=== PATIENT | male | born 1990 | race Caucasian/White ===

== ENCOUNTER 2018-10-12 10:01 | Outpatient (CLI) | payer OTHER | END 2018-10-12 10:02 | disposition home or self-care (01) | LOC: DI 10:01 → EDSEX 10:15 | PROVIDERS: ATTEND Orthopaedic Surgery | DX: Z53.9 Procedure and treatment not carried out, unspecified reason (principal) ==

== ENCOUNTER 2018-12-07 08:02 | Outpatient (CLI) | payer OTHER ==
--- NOTE | 2018-12-07 12:17 | MRI Report ---
Reason: PAIN IN RIGHT SHOULDER Procedure Date: 12/07/2018 Accession Number: [id number] / [id number] Procedure: MRI - Shoulder RT W/O CPT Code: FULL RESULT: EXAM: RIGHT SHOULDER MRI WITHOUT CONTRAST EXAM DATE: 12/07/2018 09:05 AM. CLINICAL HISTORY: Right shoulder pain after acromioclavicular joint separation. COMPARISON: None. TECHNIQUE: Multiplanar, multisequence T1-weighted and fluid-sensitive sequences of the shoulder without contrast. Other: None. FINDINGS: Acromioclavicular Region: The acromion is type II. A moderate effusion is in the acromioclavicular joint. Marrow edema is in the distal clavicle. The acromioclavicular joint capsule/ligament complex appears partially stripped off the distal clavicle. The coracoacromial and coracoclavicular ligaments are intact. No subacromial/subdeltoid bursal fluid. Glenohumeral Region: No subluxation. No effusion or loose bodies. The articular cartilage is unremarkable. The glenohumeral ligaments and joint capsule are unremarkable. Bone Marrow: No fractures. No marrow edema outside of the distal clavicle. Labrum: The labrum is unremarkable on this nonarthrographic study. Musculature/Rotator Cuff: The subscapularis, supraspinatus, infraspinatus, and teres minor tendons are intact. No edema or fatty atrophy. Biceps Tendon: The long head of the biceps tendon and biceps ann-marie are intact. Other: The subcutaneous tissues are unremarkable. IMPRESSION: 1. Probable grade 2 acromioclavicular joint separation with edema in the distal clavicle. [facility]
== END 2018-12-07 08:03 | disposition home or self-care (01) ==
LOC: DI 08:02
PROVIDERS: ATTEND Orthopaedic Surgery
DX: M25.511 Pain in right shoulder (principal); M25.411 Effusion, right shoulder